=== PATIENT | female | born 1975 | race Caucasian/White ===

== ENCOUNTER 2018-07-29 09:44 | Day surgery (SDC) | payer BC ==
[~2018-07-29] VITALS: Ht 162.6 cm; Wt 93.2 kg
[2018-07-29] VITALS (7 sets, daily range): BP systolic 112–151; BP diastolic 76–93; PULSE 80–92; TEMP 97.5–97.9
[2018-07-29] MEDS ORDERED: GLUCOPHAGE500 MG/TAB PO (09:59)
[2018-07-29] MEDS ORDERED: TRICOR 48MG48 MG PO (10:00)
== END 2018-07-29 16:00 | disposition home or self-care (01) ==
LOC: COL.ER 09:44 → SDCO 13:08 → JCC 13:16 → SDCO 16:00
DX: S62.635B Displaced fracture of distal phalanx of left ring finger, initial encounter for open fracture (principal); E28.2 Polycystic ovarian syndrome; E78.00 Pure hypercholesterolemia, unspecified; Z79.84 Long term (current) use of oral hypoglycemic drugs; Z87.891 Personal history of nicotine dependence
CPT/HCPCS: OP; J0690; J2250; J2704; J3010; J7030